=== PATIENT | female | born 1960 | race Caucasian/White ===

== ENCOUNTER 2017-01-20 17:21 | Emergency (ER) | payer BC ==
--- NOTE | 2017-01-29 14:22 | ER ---
ADMIT: 01/20/2017 RM/LOC: ER [facility] MR#: [id number] [address] [id number] ALICIA CORRALAnibal Berman [address] [place] [address] Emergency Room Report SEX: F AGE: 56 : 1960 DATE: 01/20/2017 ADDENDUM: CHIEF COMPLAINT: Abdominal pain. HISTORY OF PRESENT ILLNESS: This is a 56-year-old female, who developed epigastric pain after eating a hot dog. She said about a year ago, she had ultrasound done that showed gallstones, but her HIDA scan was normal. She has actually been doing okay over the last year, but she says this feels very similar to her gallbladder-like symptoms. We did an ultrasound. It is actually negative for any acute findings now. CMP is normal. Lipase is normal. CBC; her white count was 10.3, hemoglobin 13.5, platelets are 258. The patient feels significantly better with Toradol. I am discharging her home. I told her to follow a non-fat diet, and then to follow up with her primary care physician if the pain continues for possibly another HIDA scan. CLINICAL IMPRESSION: Right upper quadrant abdominal pain. TAHIRA Benitez / Navjot Hart MD / joyce JOB #: [id number] CC: Williams Sandoval MD, Attending Physician UNKNOWN, Family Physician
== END 2017-01-20 20:50 | disposition home or self-care (01) ==
LOC: ER 17:21
DX: R10.11 Right upper quadrant pain (principal); R10.13 Epigastric pain; Z90.710 Acquired absence of both cervix and uterus; Z98.890 Other specified postprocedural states; Z79.899 Other long term (current) drug therapy